=== PATIENT | male | born 1945 | race Caucasian/White ===

== ENCOUNTER 2017-06-15 15:02 | Emergency (ER) | payer MEDICARE, OTHER ==
[~2017-06-15] VITALS: Ht 175.3 cm; Wt 102.1 kg
[~2017-06-15 15:02] MED LIST: CLON0.5T3
[2017-06-15 15:10] VITALS: BP 166/84
== END 2017-06-15 15:57 | disposition home or self-care (01) ==
LOC: ER 15:17
DX: R51 Headache (principal); Z88.6 Allergy status to analgesic agent; V49.49XA Driver injured in collision with other motor vehicles in traffic accident, initial encounter; Y93.89 Activity, other specified; Y99.8 Other external cause status; Y92.410 Unspecified street and highway as the place of occurrence of the external cause
CPT/HCPCS: 70450

== ENCOUNTER 2017-08-09 18:33 | Emergency (ER) | payer MEDICARE ==
[~2017-08-09] VITALS: Ht 175.3 cm; Wt 105.3 kg
[2017-08-09 19:03] VITALS: BP 179/73
[2017-08-09] MEDS ORDERED: IBUPROFEN 600 MG TAB PO ONE (21:45)
== END 2017-08-09 21:57 | disposition home or self-care (01) ==
LOC: ER 18:43
DX: S46.912A Strain of unspecified muscle, fascia and tendon at shoulder and upper arm level, left arm, initial encounter (principal); S96.911A Strain of unspecified muscle and tendon at ankle and foot level, right foot, initial encounter; M25.531 Pain in right wrist; M25.552 Pain in left hip; Z88.6 Allergy status to analgesic agent; Z79.899 Other long term (current) drug therapy; V43.52XA Car driver injured in collision with other type car in traffic accident, initial encounter; Y93.89 Activity, other specified; Y92.89 Other specified places as the place of occurrence of the external cause; Y99.8 Other external cause status

== ENCOUNTER 2018-02-11 01:04 | Emergency (ER) | payer MEDICARE, OTHER ==
[~2018-02-11] VITALS: Ht 175.3 cm; Wt 99.8 kg
[2018-02-11] MEDS ORDERED: cefTRIAXone SOD 1,000 MG VL IM ONE (04:00)
[2018-02-11] MEDS ORDERED: BACITRACIN INJ 50000 UNIT VIAL TOP ONE (04:15)
[2018-02-11] MEDS ORDERED: BACITRACIN TOP OINT 1 UD PKG TOP ONE ×2 (04:15→04:30)
[2018-02-11] MEDS ORDERED: TETANUS-DIPTH-ACEL PERTUSSIS 0.5ML SYRG IM ONE (04:15)
[2018-02-11] MEDS ORDERED: HYDROcodone-ACET 10/325MG TAB PO ONE (04:30)
[2018-02-11 04:42] VITALS: BP 166/96
== END 2018-02-11 05:05 | disposition home or self-care (01) ==
LOC: ER 01:04
DX: S61.411A Laceration without foreign body of right hand, initial encounter (principal); W26.0XXA Contact with knife, initial encounter; Y93.89 Activity, other specified; Y92.89 Other specified places as the place of occurrence of the external cause; Y99.8 Other external cause status
CPT/HCPCS: 12004; 90471; 90715; 96372; 99284; J0696; 12001

== ENCOUNTER 2018-02-22 16:10 | Emergency (ER) | payer MEDICARE, OTHER ==
[~2018-02-22] VITALS: Ht 175.3 cm; Wt 99.8 kg
[2018-02-22 16:35] VITALS: BP 147/73
== END 2018-02-22 20:14 | disposition home or self-care (01) ==
LOC: ER 16:16
DX: S61.411D Laceration without foreign body of right hand, subsequent encounter (principal); X58.XXXD Exposure to other specified factors, subsequent encounter

== ENCOUNTER 2018-02-23 21:52 | Emergency (ER) | payer MEDICARE, OTHER ==
[~2018-02-23] VITALS: Ht 175.3 cm; Wt 99.8 kg
[2018-02-23 22:14] VITALS: BP 172/93
[2018-02-24] MEDS ORDERED: BACITRACIN-POLYMYXIN B TOPICAL OINT UD TOP ONE ×2 (06:23→06:30)
== END 2018-02-24 06:39 | disposition home or self-care (01) ==
LOC: ER 21:52
DX: S61.511D Laceration without foreign body of right wrist, subsequent encounter (principal); X58.XXXD Exposure to other specified factors, subsequent encounter

== ENCOUNTER 2018-03-15 16:33 | Emergency (ER) | payer MEDICARE, OTHER ==
[~2018-03-15] VITALS: Ht 175.3 cm; Wt 100.8 kg
[2018-03-15 23:06] LABS: Urine Bacteria MANY /hpf (None Seen); Urine Blood 1+ /uL (Negative); Urine Mucus FEW (None Seen); Urine Specific Gravity 1.021 (1.001-1.035); Urine WBC 410 /hpf (0 - 3)
[2018-03-16] MEDS ORDERED: cefTRIAXone 1GM/10ml IVPUSH 10 ML IV ONE (06:45)
[2018-03-16 07:11] VITALS: BP 137/74
[2018-03-16] MEDS ORDERED: PHENAZOPYRIDINE HCL 100 MG TAB PO ONE (07:30)
== END 2018-03-16 08:06 | disposition home or self-care (01) ==
LOC: ER 16:35
DX: N39.0 Urinary tract infection, site not specified (principal)
CPT/HCPCS: 81001; 96374

== ENCOUNTER 2021-09-09 13:12 | Emergency (ER) | payer MEDICARE, OTHER ==
[~2021-09-09] VITALS: Ht 175.3 cm; Wt 99.8 kg
[~2021-09-09 13:12] MED LIST changes: +CLON0.5T10; -CLON0.5T3
[2021-09-09] MEDS ORDERED: ACETAMINOPHEN 500 MG TAB PO ONE (13:30)
[2021-09-09 13:46] LABS: Urine Bacteria NONE SEEN /hpf (None Seen); Urine Blood 3+ /uL (Negative); Urine Mucus FEW (None Seen); Urine Specific Gravity 1.019 (1.001-1.035); Urine WBC 1653 /hpf (0 - 3); Urine WBC Clumps PRESENT /hpf (None Seen)
[2021-09-09] MEDS ORDERED: cefTRIAXone SOD 1,000 MG VL IM ONE (16:15)
[2021-09-09 16:45] VITALS: BP 109/70
== END 2021-09-09 17:25 | disposition home or self-care (01) ==
LOC: ER 13:12
DX: N39.0 Urinary tract infection, site not specified (principal); Z79.899 Other long term (current) drug therapy; Z20.822 Contact with and (suspected) exposure to COVID-19
CPT/HCPCS: 36415; 81001; 87426; 96372; 99283; J0696